=== PATIENT | male | born 1955 | race Caucasian/White ===

== ENCOUNTER 2019-11-12 18:19 | Observation (INO) | payer OTHER, SELFPAY ==
[2019-11-12] VITALS (7 sets, daily range): BP systolic 147–202; BP diastolic 85–109; PULSE 59–79; RESP 11–18; TEMP 36.6–36.9; O2SAT 94–99; BMI 24.5; BMI 21.9
--- NOTE | 2019-11-12 18:33 | EKG12_ITS ---
Test Reason : CP Blood Pressure : / mmHG Vent. Rate : 074 BPM Atrial Rate : 074 BPM P-R Int : 172 ms QRS Dur : 106 ms QT Int : 382 ms P-R-T Axes : 064 -11 049 degrees QTc Int : 424 ms Normal sinus rhythm Possible Left atrial enlargement Nonspecific T wave abnormality Abnormal ECG Confirmed by MARIIA BULLOCK, HANNAH ([id number]), metropolitan editor TOO MUKHERJEE ([id number]) on 11/17/2019 1:56:03 PM Referred By: GIULIA Confirmed By:BAKARI CHIANG MD
--- NOTE | 2019-11-12 18:36 | ED.DCSUM_ITS ---
- ER Visit Summary Date of Service: 11/12/19 Chief Complaint: Chest pain History of Present Illness: The patient is a 63 M with chest pain for several hours. Nothing seemed to bring it on or make it worse. It is in his left chest that does not radiate. Feels like a spasm. Associated with nausea. He never had this before. History of hypertension and family history of coronary disease. He never had a stress test, but does have one scheduled for next week. Denies any history of heart disease, blood clots, aortic disease. Denies fevers or recent illness. Physical Examination: Afebrile and vital signs unremarkable except for blood pressure 176/108. No acute distress. Heart regular. No respiratory distress. Abdomen nondistended. Skin appears normal. No edema noted. Test Results: EKG shows sinus rhythm at a rate of 74 with nonspecific T wave ch anges. Laboratory studies and chest x-ray are pending. Emergency Department Course and Treatment: Patient was treated with aspirin and placed on a monitor while awaiting results. Work-up was unremarkable. EKG, chest x-ray, labs, troponin reassuring. Patient is doing well on reevaluation. His heart score is 4. Nothing to suggest PE or dissection. I contacted the hospitalist for observation. Treatment Plan: As above Disposition: Observation Impression: Chest pain This note was generated with [employer] dictation software. It may contain incorrect words, spelling, and punctuation that were not noted in review of the chart prior to signing ED Disposition - Plan for ED Patient: Referrals: Danielito Malone MD [Primary Care Provider] -
[2019-11-12] MEDS: Aspirin 81 MG TAB.CHEW 324 MG PO (18:48)
[2019-11-12 18:56] LABS: Absolute Lymphocyte Count 1.75 X10^3/uL (0.83-4.51); Absolute Neutrophil Count 4.7 X10^3/uL (2.0-7.7); Basophil# 0.02 X10^3/uL; Basophil% 0.3 % (0-1); Eosinophil# 0.09 X10^3/uL; Eosinophils% 1.2 % (0-5); Hematocrit 43.5 % (40-54); Hemoglobin 15.3 g/dL (13.0-16.5); Lymphocyte # 1.75 X10^3/ul (4.0); Lymphocyte % 23.6 % (19-41); Mean Corp Hgb Conc 35.2 g/dL (32-36); Mean Corpuscular Hgb 33.4 pg (27.0-32.0); Mean Platelet Vol. 9.6 fl (6.2-12.0); Monocyte# 0.83 X10^3/uL; Monocyte% 11.2 % (0-10); NRBC Flagged by Analyzer 0 % (0-5); Neutrophil # 4.69 X10^3/uL (2.7-7.7); Neutrophil % 63.4 % (47-70); Platelet Count 299 K/mm3 (150-450); RBC Distribution Width CV 11.2 % (11.6-14.6); RBC Distribution Width SD 38.6 fl (35.1-43.9); Red Blood Count 4.58 M/mm3 (4.6-6.2); White Blood Count 7.4 K/mm3 (4.4-11.0)
--- NOTE | 2019-11-12 19:10 | RAD_ITS ---
STUDY: X-RAY CHEST REASON FOR EXAM: Male, 63 years old. CHEST PAIN STARTED THIS MORNING, FELT UNCOMFORTABLE LAST NIGHT TECHNIQUE: Single frontal view of the chest. COMPARISON: None. FINDINGS: The lungs are clear and expanded. There is no demonstrated pleural abnormality. Normal size heart. Normal mediastinum and mickey. Normal visualized pulmonary arteries. Normal visualized aortic arch and descending thoracic aorta. Normal visualized thoracic spine. Normal visualized ribs, clavicles, and shoulders. There is no demonstrated abnormality of the visualized soft tissue structures of the upper abdomen. RAD/Chest 1 View (Portable) IMPRESSION: No acute cardiopulmonary process. Electronically Signed: Rachel Adams MD at 19:27 EDT Tel , Service support ,
[2019-11-12 19:12] LABS: Anion Gap 6 (5-15); BUN 22 mg/dL (7-18); BUN/Creat Ratio 24.2 RATIO (10-20); Calcium,Total 10.2 mg/dL (8.5-10.1); Chloride 104 mmol/L (98-107); Creatinine, Serum 0.91 mg/dL (0.70-1.30); EST Glomerular Filtration Rate 90 mL/min (>60); Est Glom Filt Rate - Afr Amer 109 mL/min (>60); Glucose 99 mg/dL (74-106); Potassium 3.5 mmol/L (3.5-5.1); Sodium Level 139 mmol/L (136-145)
--- NOTE | 2019-11-12 20:30 | PCM.HP.STD ---
Problem List (1) Chest pain Status: Acute (2) HLD (hyperlipidemia) Status: Chronic History of Present Illness Date of Admission: 11/12/19 Chief Complaint: CHEST PAIN The patient is a 63 year old M with a significant history of hypertension and hyperlipidemia who presents emergency department with chest pain. His chest pain started on the same day of presentation. He described his chest pain as a tightness and spasms. His chest pain is episodic. He denies any aggravating factors. He thinks that when he takes a walk the pain improves. His pain is nonradiating. Associated with his symptoms is nausea. He denies vomiting or diaphoresis. He rated chest pain as 4-5 on a scale of 1-10. Importantly he follows up at his PCPs office for elevated blood pressure. His PCPs office had already scheduled outpatient stress test for him in a week's time. All in all his chest pain has been going on for about 1 week. Past Medical History Past Medical History (Chronic Problems): Chronic Problems (Last Updated 11/12/19 @ 21:[address] Dylan Mae MD) HLD (hyperlipidemia) (Chronic) Medical History: Medical History (Last Reviewed 11/13/19 @ 02:[address] Dylan Mae MD) HTN (hypertension) I10 Allergies No Known Allergies Allergy (Verified 11/12/19 18:22) Home Medications: Ambulatory Orders Medication Instructions Recorded Aspirin E.C. [Ecotrin] 81 mg PO DAILY@0800 11/12/19 Atenolol 50 mg PO DAILY 11/12/19 Cyanocobalamin (Vitamin B-12) 1,000 mcg PO DAILY 11/12/19 [B-12] Hydrochlorothiazide [Hctz] 25 mg PO DAILY 11/12/19 Lisinopril 40 mg PO DAILY 11/12/19 Surgical History: herniorrhaphy, - - Rotator cuff surgery Lives: Alone Smoking Status: Never smoker Review of Systems Constitutional: Denies: Chills, Fever, Weight Change HEENT: Denies: Head Aches, Sinus Congestion, Sinus Drainage Cardiovascular: Reports: Chest Pain. Denies: Palpitations Respiratory: Denies: Cough, Shortness of breath at rest, Sputum production Gastrointestinal: Reports: Nausea. Denies: Abdominal Pain, Vomiting Genitourinary: Denies: Dysuria Musculoskeletal: Denies: Joint Pain, Joint Tenderness Skin: Denies: Rash, Wounds Neurological: Denies: Numbness, Tingling, Focal weakness Psychiatric: Denies: Anxiety, Depression, Homicidal Ideations, Suicidal Ideations Hematologic/ Lymphatic: Denies: Easy Bruising, Easy Bleeding VTE Information - Inpt Only VTE Present on Admission: No VTE Mechan Device Prophylaxis: SCD's VTE Pharm Prophylaxis ordered?: No Patient Problems: Active and Suspected Problems (Last Updated 11/12/19 @ 21:[address] Dylan Mae MD) Chest pain (Acute) - Physical Exam Vitals/I&O's: Vital Signs Temp Pulse Resp BP Pulse Ox 97.9 F 59 L 11 L 147/85 H 94 11/12/19 18:20 11/12/19 19:52 11/12/19 19:52 11/12/19 19:52 11/12/19 19:52 Oxygen Delivery Method Room Air Weight: 71.214 kg Body Mass Index (BMI) 24.5 General: Alert, Oriented x3, Cooperative HEENT: Atraumatic, PERRLA, EOMI, Normocephalic Neck: Supple, No JVD, Negative Carotid Bruits Lungs: Clear to auscultation, Normal air movement Cardiovascular: Regular rate, Normal S1, Normal S2, No murmurs Abdomen: Bowel Sounds Present, Soft, Non Tender Extremities: No edema, Capillary Refill Less than 3 Seconds Skin: No rashes, No breakdown Musculoskeletal: No Tenderness to Palpation of Joints or Extremities Neurological: Cranial nerves II-XII grossly intact Psych/Mental Status: Normal Affect, Appropriate Laboratory Results 11/12/19 18:25: WBC 7.4, RBC 4.58 L, Hgb 15.3, Hct 43.5, MCV 95.0 H, MCH 33.4 H, MCHC 35.2, RDW Std Deviation 38.6, RDW Coeff of Tim 11.2 L, Plt Count 299, MPV 9.6, Immature Gran % (Auto) 0.300, Neut % (Auto) 63.4, Lymph % (Auto) 23.6, [place] % (Auto) 11.2 H, Eos % (Auto) 1.2, Baso % (Auto) 0.3, Absolute Neuts (auto) 4.7, Absolute Lymphs (auto) 1.75, Nucleated RBC % 0 11/12/19 18:25: Sodium 139, Potassium 3.5, Chloride 104, Carbon Dioxide 29.0, Anion Gap 6, BUN 22 H, Creatinine 0.91, Estim Creat Clear Calc 79.70, Est GFR (MDRD) Af Amer 109, Est GFR (MDRD) Non-Af 90, BUN/Creatinine Ratio 24.2 H, Glucose 99, Calcium 10.2 H, Troponin I < 0.015 Assessment/Plan All Active Problems (Last Updated 11/12/19 @ 21:[address] Dylan Mae MD) Chest pain (Acute) The patient is a 63 year old M with a significant history of hypertension and hyperlipidemia who presents emergency department with chest pain Chest pain Insert chest pain admission Place on a monitored bed at PCU Actual CXR image was independently visualized. No acute cardiopulmonary process was noted. Actual EKG tracing was independently visualized. EKG tracing showed no specific ST or T wave abnormalities. ASA 81 mg p.o. daily ordered SL NTG 0.4 mg prn as needed for chest pain ordered We will check lipid panel. Serial cardiac enzymes ordered Stat EKG as needed for chest pain Treadmill stress test in the AM if the cardiac enzymes are negative Hypertension emergency. Patient lives with systolic blood pressure more than 200 and diastolic blood pressure more than 100 at emergency department. Home lisinopril given at the ED. Add PRN hydralazine. Continue other home blood pressure medications. Hold home atenolol scheduled for a.m. in the setting of schedule stress test. Hypercalcemia Review of imaging department labs showed mild hypercalcemia of 10.2. Gentle IV hydration. Trend BMP. Hypokalemia Potassium of 3.5. Replaced with normal saline with 40 meq of potassium.. DVT prophylaxis SCD ordered. No chemical chemoprophylaxis in the setting of work-up for chest pain. OBSV E&M: 22784 Initial observation care L2
[2019-11-12] MEDS: Lisinopril 20 MG Tablet PO (21:18)
--- NOTE | 2019-11-12 22:02 | EKG12_ITS ---
Test Reason : CP ADMIT Blood Pressure : / mmHG Vent. Rate : 052 BPM Atrial Rate : 052 BPM P-R Int : 176 ms QRS Dur : 096 ms QT Int : 440 ms P-R-T Axes : 058 -03 040 degrees QTc Int : 409 ms Sinus bradycardia Nonspecific T wave abnormality Abnormal ECG Confirmed by LIZZY BULLOCK, BELÉN ([id number]), newspaper managing editor TOO MUKHERJEE ([id number]) on 11/19/2019 1:29:43 PM Referred By: DR PEREZ Confirmed By:BELÉN BALL MD
[2019-11-12] MEDS: 0.9% Saline Lock 10 ML Syringe IV (22:54)
[2019-11-12] MEDS: Potassium Chloride 40 MEQ in 0.9% Normal Saline 1,000 ML 100 MEQ IV (22:54)
[2019-11-13] VITALS (7 sets, daily range): BP systolic 129–142; BP diastolic 65–89; PULSE 40–74; RESP 14–16; TEMP 36.8–37; O2SAT 96–98
[2019-11-13 06:16] LABS: Absolute Lymphocyte Count 1.11 X10^3/uL (0.83-4.51); Absolute Neutrophil Count 2.8 X10^3/uL (2.0-7.7); Basophil# 0.01 X10^3/uL; Basophil% 0.2 % (0-1); Eosinophil# 0.14 X10^3/uL; Lymphocyte # 1.11 X10^3/ul (4.0); Lymphocyte % 23.8 % (19-41); Mean Corpuscular Hgb 33.5 pg (27.0-32.0); Mean Corpuscular Volume 95.7 fL (80-94); Mean Platelet Vol. 9.4 fl (6.2-12.0); Monocyte# 0.58 X10^3/uL; Monocyte% 12.4 % (0-10); NRBC Flagged by Analyzer 0 % (0-5); Neutrophil # 2.81 X10^3/uL (2.7-7.7); Neutrophil % 60.2 % (47-70); Platelet Count 248 K/mm3 (150-450); RBC Distribution Width CV 11.2 % (11.6-14.6); RBC Distribution Width SD 39.3 fl (35.1-43.9); Red Blood Count 4.18 M/mm3 (4.6-6.2); White Blood Count 4.7 K/mm3 (4.4-11.0)
[2019-11-13] MEDS: Aspirin E.C. 81 MG Tablet PO (06:35)
[2019-11-13 06:52] LABS: Anion Gap 7 (5-15); BUN 21 mg/dL (7-18); BUN/Creat Ratio 28.8 RATIO (10-20); Chloride 105 mmol/L (98-107); Cholesterol 204 mg/dL (200); Creatinine, Serum 0.73 mg/dL (0.70-1.30); EST Glomerular Filtration Rate 116 mL/min (>60); Est Glom Filt Rate - Afr Amer 141 mL/min (>60); Estimated Creatinine Clearance 104.16 ml/min; Glucose 92 mg/dL (74-106); High Density Lipoprotein 66 mg/dL; Potassium 3.6 mmol/L (3.5-5.1); Sodium Level 139 mmol/L (136-145); Triglycerides 77 mg/dL; Very Low Density Lipoprotein 15 mg/dL (5-40)
[2019-11-13] MEDS: Cyanocobalamin 500 MCG Tablet 1000 MCG PO (10:57)
[2019-11-13] MEDS: hydroCHLOROthiazide 25 MG Tablet PO (10:57)
--- NOTE | 2019-11-13 12:11 | STRESSREP ---
Stress Test Report Date: 11/13/2019 Procedure: Exercise tolerance test/imaging study Indications: Chest pain Consent: Per the patient Procedure: The patient exercised on a Ovidio protocol for 9 minutes and 30 seconds achieving a peak heart rate of 146 bpm (91 % predicted maximal heart rate) with a peak blood pressure 220/98 mmHg and a peak MET capacity of 11.7 METs. The baseline ECG demonstrated sinus bradycardia. The peak exercise ECG demonstrated sinus tachycardia with no significant ST-T changes diagnostic for ischemia. EKG during recovery revealed no significant ischemic changes [There were no cardiac dysrhythmias pretest, during exercise, or recovery]. The functional capacity was considered very good for age. There was [no complaint of chest discomfort during exercise or recovery]. The examination was discontinued secondary to achieving target heart rate. Impression: 1. Technically adequate (percent predicted maximal heart rate greater than 85%) exercise tolerance test 2. Stress test is negative for exercise-induced EKG changes of ischemia 3. The test test is negative for exercise-induced chest pain 4. Functional capacity is very good for age 5. Nuclear images pending Myocardial perfusion imaging study: Technique: The patient was injected with [] mCi of technetium 99m Cardiolite and subsequently rest SPECT Cardiolite nuclear imaging was obtained in the horizontal long, vertical long, and short axis views. The patient exercised on a Ovidio protocol. Please see above for details. The patient was injected with [] mCi of technetium 99m Cardiolite and subsequently stress SPECT Cardiolite nuclear imaging was obtained in the horizontal long, vertical long, and short axis views. A gated Cardiolite study at peak stress was obtained. Interpretation: Rest and stress SPECT Cardiolite nuclear imaging status post realignment, normalization, and attenuation correction, demonstrates overall normal myocardial radioisotope uptake after attenuation correction. There is no evidence of significant ischemia or infarction. The gated Cardiolite study demonstrates no significant regional wall motion abnormalities. The reported LVEF is [67]%. Impression: 1. There is no evidence of significant ischemia or infarction. 2. The gated Cardiolite study reports an LVEF of 67 %. This note was generated with [employer] software. It may contain incorrect words, spelling, and punctuation that were not noted in checking the note before signing.
--- NOTE | 2019-11-13 12:57 | DCINST_ITS ---
- Discharge Diagnoses Current Active Problems: Current Active and Chronic Problems (Last Reviewed 11/13/19 @ 02:[address] Dylan Mae MD) Chest pain (Acute) HLD (hyperlipidemia) (Chronic) You will use the following diet at home:: Cardiac Discharge Activity: Return to Normal Activity Call your doctor if you observe: Shortness of breath, Dizziness, Fainting spells, Chest pain Allergies/Adverse Reactions: Allergies No Known Allergies Allergy (Verified 11/12/19 18:22) Medications to take at Discharge Aspirin E.C. [Ecotrin] 81 mg PO DAILY@0800 11/12/19 Atenolol 50 mg PO DAILY 11/12/19 Cyanocobalamin (Vitamin B-12) [B-12] 1,000 mcg PO DAILY 11/12/19 Hydrochlorothiazide [Hctz] 25 mg PO DAILY 11/12/19 Lisinopril 40 mg PO DAILY 11/12/19 Primary Care Physician: Danielito Malone MD [Primary Care Provider] - Please follow up with your Primary Care Physician in: 1 Week Test Results: Test results from this visit will be discussed in further detail at your follow- up appointment, if applicable. Proposed Discharge Date: 11/13/19
--- NOTE | 2019-11-13 12:59 | DS.PCM_ITS ---
<Coby Ralph - Last Filed: 11/13/19 13:04> Discharge Date and Diagnosis Date of Admission: 11/12/19 Date of Discharge: 11/13/19 - Primary Discharge Diagnosis Acute Problems: Active Problems (Last Reviewed 11/13/19 @ 02:[address] Dylan Mae MD) 1. Chest pain, ACS ruled out-suspect musculoskeletal 2. Hypertensive emergency 3. Hypercalcemia 4. Hyperlipidemia - Secondary Discharge Diagnosis Chronic Problems: Chronic Problems (Last Reviewed 11/13/19 @ 02:[address] Dylan Mae MD) HLD (hyperlipidemia) (Chronic) Hospital Course and Treatment Imaging Results: Diagnostic Data Chest X-Ray 11/12/19 19:10 IMPRESSION: No acute cardiopulmonary process. Electronically Signed: Rachel Adams MD at 19:27 EDT Tel , Service support , Operations: None Procedures: Stress test Summary of Care Provided: The patient is a 63 year old M admitted 11/12/2019 due to chest pain. 1. Chest pain, ACS ruled out-suspect musculoskeletal-patient reports tight, spasm. Troponin negative. EKG without ST-T changes. Patient underwent nuclear stress test which was negative for ischemia. LVEF 67%. Follow-up with primary care physician in 1 week. 2. Hypertensive emergency-resolved. Continue home atenolol, hydrochlorothiazide, lisinopril regimen. 3. Hypercalcemia-resolved. 4. Hyperlipidemia-total cholesterol 204, recommended dietary modifications. If repeat lipid profile as outpatient remains abnormal, recommend a low-dose statin. Patient seen and examined prior to discharge. Physical assessment as noted below. Patient is stable for discharge with follow up recommendations as noted above. This patient was seen by HEATEHR Calvin under the supervision of Dr. Mcbride. - Physical Exam Vitals/I&O's: Vital Signs Temp Pulse Resp BP Pulse Ox 98.6 F 56 L 16 142/89 H 96 11/13/19 08:05 11/13/19 08:05 11/13/19 08:05 11/13/19 08:05 11/13/19 08:05 Oxygen Delivery Method Room Air Weight: 152 lb 12.485 oz Body Mass Index (BMI) 21.9 Intake and Output for Last 24 Hours 11/11/19 11/12/19 11/13/19 23:59 23:59 23:59 Intake Total 480 / 480 1235 / 1235 Balance 480 / 480 1235 / 1235 General: Alert, Oriented x3, Cooperative HEENT: Atraumatic, PERRLA, EOMI, Normocephalic Neck: Supple, No JVD, Negative Carotid Bruits Lungs: Clear to auscultation, Normal air movement Cardiovascular: Regular rate, No murmurs Abdomen: Bowel Sounds Present, Soft, Non Tender Extremities: No edema, Capillary Refill Less than 3 Seconds Skin: No rashes, No breakdown Musculoskeletal: No Tenderness to Palpation of Joints or Extremities Neurological: Cranial nerves II-XII grossly intact Psych/Mental Status: Normal Affect, Appropriate Laboratory Results 11/12/19 18:25: WBC 7.4, RBC 4.58 L, Hgb 15.3, Hct 43.5, MCV 95.0 H, MCH 33.4 H, MCHC 35.2, RDW Std Deviation 38.6, RDW Coeff of Tim 11.2 L, Plt Count 299, MPV 9.6, Immature Gran % (Auto) 0.300, Neut % (Auto) 63.4, Lymph % (Auto) 23.6, [place] % (Auto) 11.2 H, Eos % (Auto) 1.2, Baso % (Auto) 0.3, Absolute Neuts (auto) 4.7, Absolute Lymphs (auto) 1.75, Nucleated RBC % 0 11/12/19 18:25: Sodium 139, Potassium 3.5, Chloride 104, Carbon Dioxide 29.0, Anion Gap 6, BUN 22 H, Creatinine 0.91, Estim Creat Clear Calc 79.70, Est GFR (MDRD) Af Amer 109, Est GFR (MDRD) Non-Af 90, BUN/Creatinine Ratio 24.2 H, Glucose 99, Calcium 10.2 H, Troponin I < 0.015 11/12/19 22:25: Troponin I < 0.015 11/13/19 01:06: Troponin I < 0.015 11/13/19 05:51: WBC 4.7, RBC 4.18 L, Hgb 14.0, Hct 40.0, MCV 95.7 H, MCH 33.5 H, MCHC 35.0, RDW Std Deviation 39.3, RDW Coeff of Tim 11.2 L, Plt Count 248, MPV 9.4, Immature Gran % (Auto) 0.400, Neut % (Auto) 60.2, Lymph % (Auto) 23.8, [place] % (Auto) 12.4 H, Eos % (Auto) 3.0, Baso % (Auto) 0.2, Absolute Neuts (auto) 2.8, Absolute Lymphs (auto) 1.11, Nucleated RBC % 0 11/13/19 05:51: Sodium 139, Potassium 3.6, Chloride 105, Carbon Dioxide 27.0, Anion Gap 7, BUN 21 H, Creatinine 0.73, Estim Creat Clear Calc 104.16, Est GFR (MDRD) Af Amer 141, Est GFR (MDRD) Non-Af 116, BUN/Creatinine Ratio 28.8 H, Glucose 92, Calcium 9.0, Triglycerides 77, Cholesterol 204 H, LDL Cholesterol 123, VLDL Cholesterol 15, HDL Cholesterol 66 Current Medications Aspirin (Ecotrin) 81 mg PO DAILY@0800 [facility] Last Admin: 11/13/19 06:35 Dose: 81 mg Documented by: Cyanocobalamin (Vitamin B12) 1,000 mcg PO DAILY [facility] Last Admin: 11/13/19 10:57 Dose: 1,000 mcg Documented by: Dextrose (D50w Syringe) 0 gm IV X1 PRN; Protocol PRN Reason: Hypoglycemia Glucagon () 1 mg IM .X1 PRN PRN Reason: Hypoglycemia Hydralazine HCl (Apresoline Iv) 10 mg IV Q4H PRN PRN PRN Reason: SBP > 160 Hydrochlorothiazide (Hctz) 25 mg PO DAILY [facility] Last Admin: 11/13/19 10:57 Dose: 25 mg Documented by: Sodium Chloride () 250 mls @ 15 mls/hr IV .[id number] PRN PRN Reason: Saline Flush Sodium Chloride () 250 mls @ 15 mls/hr IV .[id number] PRN PRN Reason: Additional IVPB Infusion Lisinopril (Zestril) 40 mg PO QHS [facility] Nitroglycerin (Nitrostat) 0.4 mg SUBLINGUAL Q5M PRN PRN Reason: CHEST PAIN Ondansetron HCl (Zofran) 4 mg IV Q8H PRN PRN PRN Reason: NAUSEA/VOMITING Senna/Docusate Sodium (Senokot-S, Dolores-Colace) 2 tablet PO BID PRN PRN PRN Reason: Constipation Sodium Chloride () 10 - 40 ml IV UD PRN PRN Reason: SALINE FLUSH Last Admin: 11/12/19 22:54 Dose: 10 ml Documented by: Discharge Diet: Low fat/ Low Cholesterol Discharge Activity: Return to Normal Activity Call your doctor if you observe: Shortness of breath, Dizziness, Fainting spells, Chest pain Home Medications: Medications to take at Discharge Aspirin E.C. [Ecotrin] 81 mg PO DAILY@0800 11/12/19 Atenolol 50 mg PO DAILY 11/12/19 Cyanocobalamin (Vitamin B-12) [B-12] 1,000 mcg PO DAILY 11/12/19 Hydrochlorothiazide [Hctz] 25 mg PO DAILY 11/12/19 Lisinopril 40 mg PO DAILY 11/12/19 Primary Care Physician: Danielito Malone MD [Primary Care Provider] - Please follow up with your Primary Care Physician in: 1 Week Disposition: Home Minutes spent on discharge:: 35 Patient Condition:: Stable Medical Necessity - Tobacco Use Smoking Status: Never smoker Meaningful Use Info Meaningful Use Diagnoses (Choose all that apply): None applicable <Paintsil,Crosby - Last Filed: 11/14/19 08:35> Discharge Date and Diagnosis - Secondary Discharge Diagnosis Chronic Problems: Chronic Problems (Last Reviewed 11/13/19 @ 02:[address] Dylan Mae MD) HLD (hyperlipidemia) (Chronic) Hospital Course and Treatment Summary of Care Provided: This patient was seen in conjunction with Coby Ralph NP. I have independently interviewed and examined the patient and reviewed pertinent historical, laboratory, and other data. Please refer to her note for patient's presentation, findings, and recommendations. 63-year-old male with past medical history of hypertension, hyperlipidemia who comes in with complaints of chest pain that is nonradiating, improved with walking. Has been ongoing for 1 week. Not associated with diaphoresis or vomiting. It is associated with nausea. Patient's initial EKG was normal sinus rhythm, no acute ST-T changes. His troponins were negative. He underwent nuclear stress test that was negative. On the day of discharge, patient was seen and examined. Denied any new complaints. Physical Exam: Gen: Comfortable, not pale, not jaundiced, alert oriented x3 CVS:HS I +II, regular, no murmurs RESP: Diminished at lung bases GI: BS present and normal, nontender, no palpable organs EXT:No edema - Physical Exam Vitals/I&O's: Vital Signs Temp Pulse Resp BP Pulse Ox 98.6 F 56 L 16 142/89 H 96 11/13/19 08:05 11/13/19 08:05 11/13/19 08:05 11/13/19 08:05 11/13/19 08:05 Oxygen Delivery Method Room Air Weight: 69.3 kg Body Mass Index (BMI) 21.9 Intake and Output for Last 24 Hours 11/12/19 11/13/19 11/14/19 23:59 23:59 23:59 Intake Total 480 / 480 1235 / 1235 Balance 480 / 480 1235 / 1235 OBSV E&M: 95177 Observation care discharge
== END 2019-11-13 12:58 | disposition home or self-care (01) ==
LOC: ED 18:42 → PCU 21:31
PROVIDERS: Admitting Provider Hospitalist; Emergency Provider Emergency Medicine; PCP Family Medicine; Visit Provider Internal Medicine
DX: R07.89 Other chest pain (principal); I16.1 Hypertensive emergency; I10 Essential (primary) hypertension; E78.5 Hyperlipidemia, unspecified; E87.6 Hypokalemia; E83.52 Hypercalcemia; Z79.899 Other long term (current) drug therapy; Z79.82 Long term (current) use of aspirin
CPT/HCPCS: 36415; 71045; 78452; 80048; 80061; 84484; 85025; 93005; 93017; 96360; 96361; 99218; 99285; A9500; J7030; A4216; G0378

== ENCOUNTER 2021-07-13 17:14 | Emergency (ER) | payer BC, SELFPAY ==
[2021-07-13 17:15] VITALS: BP 183/94; PULSE 65; RESP 16; TEMP 36.3; O2SAT 97; BMI 21.9
--- NOTE | 2021-07-13 17:25 | EKG12_ITS ---
Test Reason : CP Blood Pressure : / mmHG Vent. Rate : 063 BPM Atrial Rate : 063 BPM P-R Int : 176 ms QRS Dur : 092 ms QT Int : 402 ms P-R-T Axes : 053 -01 019 degrees QTc Int : 411 ms Normal sinus rhythm Nonspecific T wave abnormality Confirmed by LIZZY BULLOCK, BELÉN ([id number]), editorial cartoonist TOO MUKHERJEE ([id number]) on 07/15/2021 10:15:51 AM Referred By: JAY Confirmed By:BELÉN BALL MD
[2021-07-13] MEDS: Aspirin 81 MG TAB.CHEW 324 MG PO (17:30)
--- NOTE | 2021-07-13 17:30 | RAD_ITS ---
INDICATION: chest pain EXAMINATION/TECHNIQUE: X-RAY - XR Chest 1 View COMPARISON: 11/12/2019. FINDINGS: The lungs are clear. The cardiomediastinal silhouette is unremarkable. No pleural effusion or pneumothorax. No acute osseous abnormalities. RAD/Chest 1 View (Portable) IMPRESSION: No acute radiographic abnormalities. Electronically Signed: Jon Gracia MD at 17:52 EST ,
--- NOTE | 2021-07-13 17:32 | EDS_ITS ---
HPI History of Present Illness Chief Complaint: Chest Pain Informant: patient Onset/Context/Timing Onset: Yesterday (around 36 hrs) Activity at onset: sudden, onset and activity on onset (random events) Timing: Intermittent and Lasts (5 seconds) Quality: Positive for Dull Location: Left Chest (without radiation) Current Severity: Gone Maximum Severity: Moderate Worsened By: Nothing Relieved By: Nothing Associated Symptoms: Positive for Nausea and Lightheadedness (maybe a little; just feel off when episodes occur); Negative for Vomiting, Diaphoresis, Dyspnea, Cough, Fever and Palpitations Narrative Narrative: Patient with the above intermittent episodes of chest discomfort since yesterday. He states he has a cardiology appointment in September for the first time, he was having episodes of lightheadedness within the past month or 2 and his doctor put him on some type of either Holter or event monitor as a result of that, and the results showed episodes of either A. fib, SVT, or both. Patient had a negative routine treadmill stress test November 2019. CVD Risk Factors: Positive for Hypertension; Negative for Diabetes, Hypercholesterolemia, Family History 1' </=55 and Smoking PE Risk Factors: Negative for Recent Travel/Surgery, Recent Immobilization, Prior DVT or PE, Cancer and OCP + Smoking + >/=35 [facility] Medical History HTN (hypertension) Home Medications atenolol 50 mg PO DAILY 11/12/19 [History Last Taken 11/12/19] cyanocobalamin (vitamin B-12) 1,000 mcg PO DAILY 11/12/19 [History Last Taken 11/12/19] hydrochlorothiazide 25 mg PO DAILY 11/12/19 [History Last Taken 11/12/19] lisinopril 40 mg PO DAILY 11/12/19 [History Last Taken 11/12/19] amlodipine 10 mg PO DAILY 07/13/21 [History Last Taken Unknown] Allergy/AdvReac Type Severity Reaction Status Date / Time No Known Allergies Allergy Verified 07/13/21 17:15 Social History Smoking Status: Never smoker ROS ROS ED Constitutional Constitutional ED: Denies chills or fever(s) Eyes Eyes: Denies change in vision or diplopia ENT ENT ED: Denies rhinorrhea or sore throat Cardiovascular Cardiovascular: Reports as per HPI and chest pain; Denies orthopnea, palpitations or pedal edema Respiratory/Chest Respiratory/Chest: Denies cough, dyspnea or orthopnea Gastrointestinal Gastrointestinal: Denies abdominal pain, diarrhea, nausea or vomiting Genitourinary Genitourinary ED: Denies dysuria or hematuria Musculoskeletal Musculoskeletal: Denies back pain or neck pain Integumentary Denies abscess or rash Neurologic Neurologic: Denies headache(s), paresthesias or weakness Psychiatric Psychiatric: Denies anxiety or suicidal thoughts EXAM Physical Exam Const Vital Signs: 07/13/21 17:15 07/13/21 17:18 07/13/21 18:23 Temperature 97.4 F L Temperature Source Temporal Pulse Rate 65 51 L Respiratory Rate 16 11 L Respiratory Effort Normal Non-Labored Blood Pressure 183/94 H 150/84 H Blood Pressure Mean 123 106 Pulse Ox 97 96 Oxygen Delivery Method Room Air Room Air 07/13/21 19:00 Temperature Temperature Source Pulse Rate 53 L Respiratory Rate 14 Respiratory Effort Blood Pressure 132/75 H Blood Pressure Mean 94 Pulse Ox 97 Oxygen Delivery Method Room Air Positive well nourished and well developed General Appearance ED: well developed and NAD HEENT Reports moist mucous membranes normocephalic and atraumatic Eyes PERRL and EOMs intact bilaterally Neck full ROM and supple Resp normal respiratory effort and clear to auscultation bilaterally Cardio regular rate, regular rhythm and no murmurs GI non-tender and non-distended Auscultation: normoactive bowel sounds Palpation: soft Back/Spine no CVA tenderness General Back: other FROM Extremity normal to inspection, no calf tenderness and no pedal edema General Extremety ED: Negative for edema, pulses abnormal or tenderness General Extremity: Negative for edema or pulses abnormal Neuro oriented x3, CN's II-XII intact bilaterally and no sensory deficits noted Sensorium / Orientation: awake and alert Motor Exam: strength 5/5 throughout Skin no rashes or lesions noted and no wounds Heart Score History: Slightly/Non-Suspicious ECG: Normal Age: >45 - <65 years Risk Factors: 1 or 2 Risk Factors Troponin: </= Normal Limit Score: 2 MDM MDM MDM Narrative Medical decision making narrative: Patient's work-up is negative. After 36 hours or so of symptoms, I do not think he needs another troponin other than the initial measurement we received which is only 7. I monitored him a while longer to see if he had any episodes of discomfort or event monitors, he had neither. He is comfortable going home. I reassured him I do not think he is having unstable angina, it is possible he is having ectopy and having symptoms of it, he is scheduled to follow-up with cardiology, we discussed reasons to return. Of note also, his blood pressure was 183/94 when he got here, without treatment on reassessment it is 132/75. Lab Data Attestation: I reviewed the patient's lab results. Labs: Laboratory Results - last 24 hr 07/13/21 07/13/21 17:25 17:25 WBC 6.2 RBC 4.53 L Hgb 15.5 Hct 43.0 MCV 94.9 H MCH 34.2 H MCHC 36.0 RDW Std Deviation 39.0 RDW Coeff of Tim 11.1 L Plt Count 314 MPV 9.6 Immature Gran % (Auto) 0.200 Neut % (Auto) 55.9 Lymph % (Auto) 29.4 [place] % (Auto) 12.9 H Eos % (Auto) 1.3 Baso % (Auto) 0.3 Absolute Neuts (auto) 3.5 Absolute Lymphs (auto) 1.82 Nucleated RBC % 0 Sodium 137 Potassium 3.7 Chloride 103 Carbon Dioxide 28.0 Anion Gap 6 BUN 26 H Creatinine 1.03 Estim Creat Clear Calc 72.06 Est GFR (MDRD) Af Amer 94 Est GFR (MDRD) Non-Af 77 BUN/Creatinine Ratio 25.2 H Glucose 96 Calcium 9.6 Troponin I High Sens 7 Radiography Diagnostic Testing: Clinical Impression(s) from Imaging Studies Chest X-Ray 07/13/21 17:30 IMPRESSION: No acute radiographic abnormalities. Electronically Signed: Jon Gracia MD at 17:52 EST , Rhythm Strip Rhythm Strip: Sinus Rhythm Rate: 55 Ectopy: None EKG Initial EKG: Attestation: I personally reviewed and interpreted this EKG as follows: Interpretation: Sinus Rhythm and No Acute Injury Pattern Prior EKG tracings: available for review Prior: Unchanged Discharge Plan Triage Chief Complaint: Chest Pain ED Provider: Jaison Rushing Dx/Rx/DC Orders Clinical Impression: Intermittent left-sided chest pain Instructions: ED Chest Pain, Uncertain Cause Prescriptions: No Action hydrochlorothiazide 25 MG tablet 25 mg PO DAILY RF: 0 lisinopril 40 MG tablet 40 mg PO DAILY RF: 0 atenolol 50 MG tablet 50 mg PO DAILY RF: 0 cyanocobalamin (vitamin B-12) 1,000 MCG tablet 1,000 mcg PO DAILY RF: 0 amlodipine 10 mg tablet 10 mg PO DAILY RF: 0 Primary Care Provider: Danielito Malone Referrals: Nicola Black MD [NON-STAFF] - Keep Wandy appointment (or sooner if able) Danielito Malone MD [Primary Care Provider] - Disposition Disposition: Home, Self Care
[2021-07-13 18:02] LABS: Anion Gap 6 (5-15); BUN 26 mg/dL (7-18); BUN/Creat Ratio 25.2 RATIO (10-20); Calcium,Total 9.6 mg/dL (8.5-10.1); Chloride 103 mmol/L (98-107); Creatinine, Serum 1.03 mg/dL (0.70-1.30); EST Glomerular Filtration Rate 77 mL/min (>60); Est Glom Filt Rate - Afr Amer 94 mL/min (>60); Estimated Creatinine Clearance 72.06 ml/min; Glucose 96 mg/dL (74-106); Potassium 3.7 mmol/L (3.5-5.1); Sodium Level 137 mmol/L (136-145); Troponin-I HS 7 pg/mL (3.0-78.0)
[2021-07-13 18:04] LABS: Absolute Lymphocyte Count 1.82 X10^3/uL (0.83-4.51); Absolute Neutrophil Count 3.5 X10^3/uL (2.0-7.7); Basophil# 0.02 X10^3/uL; Basophil% 0.3 % (0-1); Eosinophil# 0.08 X10^3/uL; Eosinophils% 1.3 % (0-5); Hemoglobin 15.5 g/dL (13.0-16.5); Lymphocyte # 1.82 X10^3/ul (0.83-4.51); Lymphocyte % 29.4 % (19-41); Mean Corpuscular Hgb 34.2 pg (27.0-32.0); Mean Corpuscular Volume 94.9 fL (80-94); Mean Platelet Vol. 9.6 fl (6.2-12.0); Monocyte% 12.9 % (0-10); NRBC Flagged by Analyzer 0 % (0-5); Neutrophil # 3.45 X10^3/uL (2.7-7.7); Neutrophil % 55.9 % (47-70); Platelet Count 314 K/mm3 (150-450); RBC Distribution Width CV 11.1 % (11.6-14.6); Red Blood Count 4.53 M/mm3 (4.6-6.2); White Blood Count 6.2 K/mm3 (4.4-11.0)
[2021-07-13 18:23] VITALS: BP 150/84; PULSE 51; RESP 11; O2SAT 96
[2021-07-13 19:00] VITALS: BP 132/75; PULSE 53; RESP 14; O2SAT 97
[2021-07-13 19:29] VITALS: BP 152/74; PULSE 53; RESP 12; O2SAT 97
== END 2021-07-13 19:29 | disposition home or self-care (01) ==
PROVIDERS: Emergency Provider Emergency Medicine; PCP Family Medicine; Visit Provider Emergency Medicine
DX: R07.9 Chest pain, unspecified (principal); I10 Essential (primary) hypertension; R11.0 Nausea; R42 Dizziness and giddiness; Z79.899 Other long term (current) drug therapy
CPT/HCPCS: 71045; 80048; 84484; 85025; 93005; 99285; A4216

== ENCOUNTER 2021-08-01 20:56 | Emergency (ER) | payer BC, SELFPAY ==
[2021-08-01 20:57] VITALS: BP 175/98; PULSE 110; RESP 18; TEMP 36.8; O2SAT 97; BMI 21.9
[2021-08-01 21:03] VITALS: PULSE 89
--- NOTE | 2021-08-01 21:09 | EKG12_ITS ---
Test Reason : CP Blood Pressure : / mmHG Vent. Rate : 094 BPM Atrial Rate : 094 BPM P-R Int : 170 ms QRS Dur : 096 ms QT Int : 338 ms P-R-T Axes : 058 -05 042 degrees QTc Int : 422 ms Sinus rhythm with marked sinus arrhythmia Nonspecific ST abnormality Abnormal ECG Confirmed by AYE BULLOCK, FORD ([id number]), editor greeting card TOO MUKHERJEE ([id number]) on 08/04/2021 1:28:48 PM Referred By: ABRAN Confirmed By:FORD GRIFFITHS MD
--- NOTE | 2021-08-01 21:18 | RAD_ITS ---
STUDY: XR Chest 1 View 08/01/2021 9:10 PM REASON FOR EXAM: Male, 65 years old. CHEST PAIN chest pain COMPARISON: 2.9 TECHNIQUE: XR Chest 1 View FINDINGS: There is no demonstrated pleural abnormality. Normal heart size. Normal mediastinum. Normal mickey. Prominent appearing increased interstitial lung markings. Normal visualized pulmonary arteries. There is atherosclerotic calcification of the aortic arch with tortuosity. There are diffuse degenerative changes of the visualized thoracic spine. There is degenerative osteoarthritis of the bilateral shoulders. There is no demonstrated abnormality of the visualized soft tissue structures of the upper abdomen. RAD/Chest 1 View (Portable) IMPRESSION: There are no acute findings. Electronically Signed: Kory Henry MD at 21:29 EST ,
[2021-08-01 21:22] LABS: Absolute Lymphocyte Count 1.49 X10^3/uL (0.83-4.51); Absolute Neutrophil Count 3.6 X10^3/uL (2.0-7.7); Basophil# 0.01 X10^3/uL; Basophil% 0.2 % (0-1); Eosinophil# 0.13 X10^3/uL; Eosinophils% 2.3 % (0-5); Hematocrit 42.3 % (40-54); Hemoglobin 15.1 g/dL (13.0-16.5); Lymphocyte # 1.49 X10^3/ul (0.83-4.51); Lymphocyte % 25.8 % (19-41); Mean Corp Hgb Conc 35.7 g/dL (32-36); Mean Corpuscular Hgb 34.2 pg (27.0-32.0); Mean Corpuscular Volume 95.9 fL (80-94); Mean Platelet Vol. 9.5 fl (6.2-12.0); Monocyte# 0.54 X10^3/uL; Monocyte% 9.4 % (0-10); NRBC Flagged by Analyzer 0 % (0-5); Neutrophil # 3.58 X10^3/uL (2.7-7.7); Platelet Count 210 K/mm3 (150-450); RBC Distribution Width CV 11.3 % (11.6-14.6); RBC Distribution Width SD 40.1 fl (35.1-43.9); Red Blood Count 4.41 M/mm3 (4.6-6.2); White Blood Count 5.8 K/mm3 (4.4-11.0)
[2021-08-01] MEDS: Aspirin 81 MG TAB.CHEW 324 MG PO (21:36)
[2021-08-01 21:47] LABS: Anion Gap 4 (5-15); BUN 18 mg/dL (7-18); BUN/Creat Ratio 16.8 RATIO (10-20); Calcium,Total 9.7 mg/dL (8.5-10.1); Chloride 105 mmol/L (98-107); Creatinine, Serum 1.07 mg/dL (0.70-1.30); EST Glomerular Filtration Rate 74 mL/min (>60); Est Glom Filt Rate - Afr Amer 90 mL/min (>60); Estimated Creatinine Clearance 69.36 ml/min; Glucose 143 mg/dL (74-106); Potassium 4.1 mmol/L (3.5-5.1); Sodium Level 137 mmol/L (136-145); Troponin-I HS 7 pg/mL (3.0-78.0)
[2021-08-01 22:21] VITALS: BP 158/89; PULSE 69; RESP 12; O2SAT 96
--- NOTE | 2021-08-01 23:14 | EDS_ITS ---
HPI History of Present Illness Detail of Chief Complaint: Lightheaded and palpitations. Informant: patient Onset/Context/Timing Onset: Today and Hours Timing: Intermittent Associated Symptoms: Positive for Lightheadedness; Negative for Nausea, Vomiting, Diaphoresis, Dyspnea, Cough, Fever, Acid Reflux and Palpitations Narrative Narrative: 65-year-old male who comes in complaining of lightheadedness today. He developed what he thought was palpitations accelerated heart rate. Now his symptoms have resolved. Recently was placed on a site monitor. They have concerns that he may have had episodes of A. fib and he has follow-up with Dr. David a professor of social work with the [facility]. Patient has no cardiac history. He did have a negative stress test a year ago. Otherwise he states he has been feeling fine. He denies any chest pain or exertional symptoms. Prior Similar Symptoms: Yes Recent Illness/Hospitalization: No CVD Risk Factors: Positive for Hypertension; Negative for Diabetes and Hypercholesterolemia PE Risk Factors: Negative for Recent Travel/Surgery, Recent Immobilization, Prior DVT or PE, Cancer and OCP + Smoking + >/=35 [facility] Risk Factors: Negative for Marfan's Syndrome [facility] Medical History HTN (hypertension) Home Medications atenolol 50 mg PO DAILY 11/12/19 [History Last Taken 11/12/19] cyanocobalamin (vitamin B-12) 1,000 mcg PO DAILY 11/12/19 [History Last Taken 11/12/19] hydrochlorothiazide 25 mg PO DAILY 11/12/19 [History Last Taken 11/12/19] lisinopril 40 mg PO DAILY 11/12/19 [History Last Taken 11/12/19] amlodipine 5 mg PO DAILY 07/13/21 [History Last Taken Unknown] Allergy/AdvReac Type Severity Reaction Status Date / Time No Known Allergies Allergy Verified 07/13/21 17:15 Social History Smoking Status: Never smoker ROS ROS ED ROS Narrative Palpitations. Tachycardia. Lightheadedness. Review of Systems ROS Unobtainable: Denies due to encephalopathy Constitutional Constitutional ED: Denies fever(s) Eyes Eyes: Denies none ENT ENT ED: Denies ear pain Cardiovascular Cardiovascular: Reports as per HPI, palpitations and racing heartbeat; Denies chest pain Respiratory/Chest Respiratory/Chest: Denies cough or dyspnea Gastrointestinal Gastrointestinal: Denies abdominal pain, constipation, diarrhea, nausea or vomiting Genitourinary Genitourinary ED: Denies dysuria Musculoskeletal Musculoskeletal: Denies myalgias Integumentary Denies rash Neurologic Neurologic: Denies headache(s) Psychiatric Psychiatric: Denies depression Endocrine Endocrinology: Denies polyuria Hematologic/Lymphatic Hematologic/Lymphatic: Denies easy bruising EXAM Physical Exam Narrative Exam Narrative: 65-year-old male no acute distress. Vital signs are stable and afebrile during my exam his heart rates about 90. He is in no distress. Pulse ox 97% on room air no hypoxia. H EENT exam normal. Neck nontender no lymphadenopathy. Lungs clear to auscultation bilaterally. Heart regular rate and rhythm rate about 90 no murmur. Chest were nontender. Abdomen soft nontender. He is moving all 4 extremities. Calves are nontender without edema or cords. Neurologically is awake and alert with no focal motor deficits. Neck exam there is no thyromegaly. Const Vital Signs: 08/01/21 20:57 08/01/21 21:02 08/01/21 21:03 Temperature 98.2 F Temperature Source Temporal Pulse Rate 110 H 89 Respiratory Rate 18 Respiratory Effort Normal Non-Labored Blood Pressure 175/98 H Blood Pressure Mean 123 Pulse Ox 97 Oxygen Delivery Method Room Air 08/01/21 22:21 Temperature Temperature Source Pulse Rate 69 Respiratory Rate 12 Respiratory Effort Blood Pressure 158/89 H Blood Pressure Mean 112 Pulse Ox 96 Oxygen Delivery Method Room Air Positive well nourished and well developed; Negative for obese, cachectic, contractures or unkempt General Appearance ED: well developed and NAD; Negative for unkempt, cachectic, contractures or pallor Nutritional Appearance: Negative for cachectic or obese HEENT Reports moist mucous membranes normocephalic; Negative for trauma or tenderness Eyes PERRL and EOMs intact bilaterally General Eye ED: Negative for pale conjunctiva or scleral icterus Neck no lymphadenopathy, supple and no JVD General: Negative for tenderness Chest Wall inspection of chest normal and palpation of chest normal Chest: Negative for tenderness Resp normal respiratory effort and clear to auscultation bilaterally Effort and Inspection: respiratory distress Auscultation: Negative for rales, rhonchi or wheezes Cardio regular rate, regular rhythm, S1 normal heart sound, S2 normal heart sound and no murmurs GI normal to inspection, nondistended, normoactive bowel sounds, soft to palpation, non-tender, non-distended and no masses; Negative for hepatosplenomegaly Auscultation: Negative for hyperactive bowel sounds Palpation: Negative for splenomegaly Back/Spine no CVA tenderness and no thoracic nor lumbar tenderness General Back: Negative for CVA tenderness Extremity normal to inspection General Extremety ED: Negative for edema, pulses abnormal or tenderness General Extremity: Negative for edema or pulses abnormal Neuro oriented x3 Sensorium / Orientation: awake, alert, oriented to person, oriented to place and oriented to time Motor Exam: strength 5/5 throughout Psych mental status grossly normal Appearance: Negative for unkempt Attitude: No agitated Mood & Affect: Negative for depressed or tearful Skin no rashes or lesions noted and no wounds General Skin Exam: Negative for jaundice or pallor Heart Score History: Slightly/Non-Suspicious ECG: Normal Age: >45 - <65 years Risk Factors: No Risk Factors Troponin: </= Normal Limit Score: 1 MDM MDM MDM Narrative Medical decision making narrative: 65-year-old male with palpitations lightheadedness. He may or may not have had a dysrhythmia. His exam is benign and currently his symptoms have resolved and he is in a normal heart rate in the emergency department. He will undergo a cardiac work-up. There is suspicion from a recent outpatient site monitor that he may have A. fib or another dysrhythmia. He is seeking further evaluation for that coming up with a cardiology appointment. Repeat exam patient is doing well at 11:20 PM. And I went over his test. He is comfortable being discharged home. Follow-up with his cardiology appointment for further evaluation for possible palpitations or other dysrhythmias. Lab Data Attestation: I reviewed the patient's lab results. Lab results narrative: CBC shows a white count of 5.8. H&H of 15 and 42. Platelets are normal. Electrolytes unremarkable gap of 4. Normal BUN and creatinine. Glucose 143. Troponin is 7. Chest x-ray is unremarkable. Labs: Laboratory Results - last 24 hr 08/01/21 08/01/21 21:10 21:10 WBC 5.8 RBC 4.41 L Hgb 15.1 Hct 42.3 MCV 95.9 H MCH 34.2 H MCHC 35.7 RDW Std Deviation 40.1 RDW Coeff of Tim 11.3 L Plt Count 210 MPV 9.5 Immature Gran % (Auto) 0.300 Neut % (Auto) 62.0 Lymph % (Auto) 25.8 [place] % (Auto) 9.4 Eos % (Auto) 2.3 Baso % (Auto) 0.2 Absolute Neuts (auto) 3.6 Absolute Lymphs (auto) 1.49 Nucleated RBC % 0 Sodium 137 Potassium 4.1 Chloride 105 Carbon Dioxide 28.0 Anion Gap 4 L BUN 18 Creatinine 1.07 Estim Creat Clear Calc 69.36 Est GFR (MDRD) Af Amer 90 Est GFR (MDRD) Non-Af 74 BUN/Creatinine Ratio 16.8 Glucose 143 H Calcium 9.7 Troponin I High Sens 7 Radiography Chest X-Ray - ED: 1 View, Read by ED Physician, Read by Radiologist, Heart, Lungs, Mediastinum, Bony Structures and No Acute Disease Diagnostic Testing: Clinical Impression(s) from Imaging Studies Chest X-Ray 08/01/21 21:18 IMPRESSION: There are no acute findings. Electronically Signed: Kory Henry MD at 21:29 EST Reading Location ID and State: [facility] / [place] , Service support , Rhythm Strip Rhythm Strip: Sinus Rhythm Rate: 94 Ectopy: None EKG Initial EKG: Attestation: I personally reviewed and interpreted this EKG as follows: Interpretation: Sinus Rhythm and No Acute Injury Pattern Comments: Normal sinus rhythm rate of 94. No acute signs of DE nor ischemia. Sinus arrhythmia. Discharge Plan Triage ED Provider: Ton Hickey Dx/Rx/DC Orders Clinical Impression: Heart palpitations, Hypertension Instructions: ED Palpitations Prescriptions: No Action hydrochlorothiazide 25 MG tablet 25 mg PO DAILY RF: 0 lisinopril 40 MG tablet 40 mg PO DAILY RF: 0 atenolol 50 MG tablet 50 mg PO DAILY RF: 0 cyanocobalamin (vitamin B-12) 1,000 MCG tablet 1,000 mcg PO DAILY RF: 0 amlodipine 10 mg tablet 5 mg PO DAILY RF: 0 Primary Care Provider: Danielito Malone Referrals: Nicola Black MD [NON-STAFF] - Keep Wandy appointment Danielito Malone MD [Primary Care Provider] - Activity Restrictions/Additional Instructions: You may or may not be having an abnormal rhythm which could be atrial fibrillation with rapid ventricular response. There is no signs of that tonight. When you follow-up with Dr. Rothman can evaluate your prior cardiac monitoring. You do not need any further evaluation tonight. You can be discharged home. 8 if you have recurrent symptoms any persist return. Disposition Disposition: Home, Self Care
[2021-08-01 23:16] VITALS: BP 141/82; PULSE 65; RESP 11; O2SAT 98
[2021-08-01 23:36] LABS: Troponin-I HS 8 pg/mL (3.0-78.0)
[2021-08-01 23:41] VITALS: BP 143/90; PULSE 73; RESP 16; O2SAT 97
== END 2021-08-01 23:42 | disposition home or self-care (01) ==
PROVIDERS: Emergency Provider Emergency Medicine; PCP Family Medicine; Visit Provider Emergency Medicine
DX: R00.2 Palpitations (principal); R42 Dizziness and giddiness; I10 Essential (primary) hypertension; Z79.899 Other long term (current) drug therapy
CPT/HCPCS: 71045; 80048; 84484; 85025; 93005; 99285; A4216

== ENCOUNTER 2021-10-02 11:58 | Emergency (ER) | payer BC, SELFPAY ==
[2021-10-02 11:59] VITALS: BP 175/85; PULSE 59; RESP 11; TEMP 36.4; O2SAT 98; BMI 22.6
--- NOTE | 2021-10-02 12:11 | EKG12_ITS ---
Test Reason : Blood Pressure : / mmHG Vent. Rate : 061 BPM Atrial Rate : 061 BPM P-R Int : 182 ms QRS Dur : 088 ms QT Int : 402 ms P-R-T Axes : 061 001 040 degrees QTc Int : 404 ms Normal sinus rhythm Normal ECG Confirmed by AYE BULLOCK, FORD ([id number]), editor in chief newspaper TOO MUKHERJEE ([id number]) on 10/03/2021 1:22:42 PM Referred By: Confirmed By:FORD GRIFFITHS MD
--- NOTE | 2021-10-02 12:12 | ED.VIS.CHEST ---
HPI History of Present Illness Chief Complaint: Chest Pain Informant: patient Onset/Context/Timing Onset: Days Activity at onset: gradual Timing: Intermittent Narrative Narrative: Patient presents secondary to intermittent left-sided chest pain. He states the past several days has been having intermittent pain, more frequent since 8:00 this morning. He describes a mild pressure with occasional sharp stabbing pain that is very quick. It does not seem to be related to arm movement or deep breathing. He does not have significant shortness of breath. He has been having similar symptoms recently and is scheduled to see cardiology in November. He reports his last stress test was approximately 2 years ago and normal at that time. [facility] Medical History Hernia HLD (hyperlipidemia) HTN (hypertension) Home Medications atenolol 50 mg PO DAILY 11/12/19 [History Last Taken 11/12/19] cyanocobalamin (vitamin B-12) 1,000 mcg PO DAILY 11/12/19 [History Last Taken 11/12/19] hydrochlorothiazide 25 mg PO DAILY 11/12/19 [History Last Taken 11/12/19] lisinopril 40 mg PO DAILY 11/12/19 [History Last Taken 11/12/19] amlodipine 5 mg PO DAILY 07/13/21 [History Last Taken Unknown] Allergy/AdvReac Type Severity Reaction Status Date / Time No Known Allergies Allergy Verified 10/02/21 12:02 Surgical History H/O repair of rotator cuff Social History Smoking Status: Never smoker ROS ROS ED Constitutional Constitutional ED: Denies chills or fever(s) Eyes Eyes: Denies change in vision ENT ENT ED: Denies sore throat Cardiovascular Cardiovascular: Reports chest pain Respiratory/Chest Respiratory/Chest: Denies cough or dyspnea Gastrointestinal Gastrointestinal: Denies abdominal pain, nausea or vomiting Genitourinary Genitourinary ED: Denies dysuria Musculoskeletal Musculoskeletal: Denies back pain or neck pain Integumentary Denies rash Neurologic Neurologic: Denies headache(s) or weakness Allergic/Immunologic Allergic/Immunologic ED: Denies urticaria EXAM Physical Exam Const Vital Signs: 10/02/21 11:59 10/02/21 12:19 10/02/21 12:23 Temperature 97.6 F L Temperature Source Temporal Pulse Rate 59 L Respiratory Rate 11 L Respiratory Effort Normal Non-Labored Respiratory Pattern Normal Blood Pressure 175/85 H Blood Pressure Mean 115 Pulse Ox 98 Oxygen Delivery Method Room Air Room Air 10/02/21 13:08 10/02/21 14:28 Temperature Temperature Source Pulse Rate 49 L 44 L Respiratory Rate 8 L 16 Respiratory Effort Respiratory Pattern Blood Pressure 141/80 H 166/92 H Blood Pressure Mean 100 116 Pulse Ox 99 99 Oxygen Delivery Method Room Air Room Air Positive well nourished and well developed General Appearance ED: well developed HEENT normocephalic and atraumatic Eyes PERRL and EOMs intact bilaterally Neck no lymphadenopathy and supple Chest Wall inspection of chest normal and palpation of chest normal Resp normal respiratory effort Effort and Inspection: respiratory distress Cardio regular rate and regular rhythm GI normal to inspection, nondistended, normoactive bowel sounds Extremity normal to inspection Neuro oriented x3 and no sensory deficits noted Sensorium / Orientation: awake and alert Motor Exam: strength 5/5 throughout Psych mental status grossly normal Skin no rashes or lesions noted Heart Score History: Slightly/Non-Suspicious ECG: Normal Age: >45 - <65 years Risk Factors: 1 or 2 Risk Factors Troponin: </= Normal Limit Score: 2 MDM MDM MDM Narrative Medical decision making narrative: Patient given aspirin. Patient placed on cardiac exercise physiologist. EKG, chest x-ray, lab work obtained. Lab Data Attestation: I reviewed the patient's lab results. Labs: Laboratory Results - last 24 hr 10/02/21 10/02/21 10/02/21 12:15 12:15 12:15 WBC 5.5 RBC 4.20 L Hgb 14.2 Hct 39.3 L MCV 93.6 MCH 33.8 H MCHC 36.1 H RDW Std Deviation 38.2 RDW Coeff of Tim 11.3 L Plt Count 229 MPV 9.3 Immature Gran % (Auto) 0.200 Neut % (Auto) 70.9 H Lymph % (Auto) 16.8 L [place] % (Auto) 10.6 H Eos % (Auto) 1.3 Baso % (Auto) 0.2 Absolute Neuts (auto) 3.9 Absolute Lymphs (auto) 0.92 Nucleated RBC % 0 D-Dimer Quant (PE/DVT) < 0.27 L Sodium 138 Potassium 3.7 Chloride 106 Carbon Dioxide 27.0 Anion Gap 5 BUN 17 Creatinine 0.87 Estim Creat Clear Calc 87.93 Est GFR (MDRD) Af Amer 114 Est GFR (MDRD) Non-Af 94 BUN/Creatinine Ratio 19.5 Glucose 103 Calcium 9.7 Troponin I High Sens 4 Radiography Chest X-Ray - ED: 1 View, Read by ED Physician, Normal, Heart, Lungs and Mediastinum Diagnostic Testing: Clinical Impression(s) from Imaging Studies Chest X-Ray 10/02/21 12:26 IMPRESSION: No demonstrated acute cardiopulmonary process. Electronically Signed: Dannielle Ba MD at 12:48 EDT , EKG Initial EKG: Attestation: I personally reviewed and interpreted this EKG as follows: Interpretation: Sinus Rhythm (Sinus at 61 with no acute ischemia.) Treatment and Re-Evaluation Narrative: Patient does have sinus bradycardia noted on cardiac exercise physiologist. No dysrhythmias appreciated. Lab work unremarkable including negative D-dimer. Troponin checked x2 and both values within normal limits. Patient be discharged with reassurance. He will follow-up with cardiology as scheduled. Return instructions provided. Discharge Plan Triage Chief Complaint: Chest Pain ED Provider: Mariana Gore Dx/Rx/DC Orders Clinical Impression: Chest pain Instructions: ED Chest Pain, Noncardiac Prescriptions: No Action hydrochlorothiazide 25 MG tablet 25 mg PO DAILY RF: 0 lisinopril 40 MG tablet 40 mg PO DAILY RF: 0 atenolol 50 MG tablet 50 mg PO DAILY RF: 0 cyanocobalamin (vitamin B-12) 1,000 MCG tablet 1,000 mcg PO DAILY RF: 0 amlodipine 10 mg tablet 5 mg PO DAILY RF: 0 Primary Care Provider: Danielito Malone Referrals: Mendez Dahl MD [STAFF PHYSICIAN] - Keep Wandy appointment Danielito Malone MD [Primary Care Provider] - Disposition Disposition: Home, Self Care
[2021-10-02] MEDS: Aspirin 81 MG TAB.CHEW 324 MG PO (12:22)
--- NOTE | 2021-10-02 12:26 | RAD_ITS ---
STUDY: X-RAY CHEST REASON FOR EXAM: Male, 65 years old. Chest pain TECHNIQUE: Single AP portable view of the chest. COMPARISON: August 01, 2021 chest x-ray FINDINGS: The lungs are clear and expanded. There is no demonstrated pleural abnormality. Normal size heart. Normal mediastinum and mickey. Normal visualized pulmonary arteries. Normal visualized aortic arch and descending thoracic aorta. Normal visualized thoracic spine. There is a postoperative orthopedic tack overlying the humerus. There is no demonstrated abnormality of the visualized soft tissue structures of the upper abdomen. RAD/Chest 1 View (Portable) IMPRESSION: No demonstrated acute cardiopulmonary process. Electronically Signed: Dannielle Ba MD at 12:48 EDT ,
[2021-10-02 12:30] LABS: Absolute Lymphocyte Count 0.92 X10^3/uL (0.83-4.51); Absolute Neutrophil Count 3.9 X10^3/uL (2.0-7.7); Basophil# 0.01 X10^3/uL; Basophil% 0.2 % (0-1); Eosinophil# 0.07 X10^3/uL; Eosinophils% 1.3 % (0-5); Hematocrit 39.3 % (40-54); Hemoglobin 14.2 g/dL (13.0-16.5); Lymphocyte # 0.92 X10^3/ul (0.83-4.51); Lymphocyte % 16.8 % (19-41); Mean Corp Hgb Conc 36.1 g/dL (32-36); Mean Corpuscular Hgb 33.8 pg (27.0-32.0); Mean Corpuscular Volume 93.6 fL (80-94); Mean Platelet Vol. 9.3 fl (6.2-12.0); Monocyte# 0.58 X10^3/uL; Monocyte% 10.6 % (0-10); NRBC Flagged by Analyzer 0 % (0-5); Neutrophil # 3.89 X10^3/uL (2.7-7.7); Neutrophil % 70.9 % (47-70); Platelet Count 229 K/mm3 (150-450); RBC Distribution Width CV 11.3 % (11.6-14.6); RBC Distribution Width SD 38.2 fl (35.1-43.9); White Blood Count 5.5 K/mm3 (4.4-11.0)
[2021-10-02 12:45] LABS: D-Dimer Quantitative (DVT/PE) < 0.27 FEU/ug/m (0.27-0.49)
[2021-10-02 12:56] LABS: Anion Gap 5 (5-15); BUN 17 mg/dL (7-18); BUN/Creat Ratio 19.5 RATIO (10-20); Calcium,Total 9.7 mg/dL (8.5-10.1); Chloride 106 mmol/L (98-107); Creatinine, Serum 0.87 mg/dL (0.70-1.30); EST Glomerular Filtration Rate 94 mL/min (>60); Est Glom Filt Rate - Afr Amer 114 mL/min (>60); Estimated Creatinine Clearance 87.93 ml/min; Glucose 103 mg/dL (74-106); Potassium 3.7 mmol/L (3.5-5.1); Sodium Level 138 mmol/L (136-145); Troponin-I HS (w/2H Reflex) 4 pg/mL (3.0-78.0)
[2021-10-02 13:08] VITALS: BP 141/80; PULSE 49; RESP 8; O2SAT 99
[2021-10-02 14:27] LABS: Reflex Troponin-HS? (from REC) Y
[2021-10-02 14:28] VITALS: BP 166/92; PULSE 44; RESP 16; O2SAT 99
[2021-10-02 14:52] LABS: Troponin-I HS 6 pg/mL (3.0-78.0)
[2021-10-02 15:02] VITALS: BP 143/83; PULSE 50; RESP 16; O2SAT 100
== END 2021-10-02 15:03 | disposition home or self-care (01) ==
PROVIDERS: Emergency Provider Emergency Medicine; PCP Family Medicine; Visit Provider Emergency Medicine
DX: R07.9 Chest pain, unspecified (principal); E78.5 Hyperlipidemia, unspecified; I10 Essential (primary) hypertension
CPT/HCPCS: 71045; 80048; 84484; 85025; 85379; 93005; 99285; A4216

== ENCOUNTER 2022-05-31 15:22 | Emergency (ER) | payer BC, SELFPAY ==
[2022-05-31 15:23] VITALS: BP 169/91; PULSE 69; RESP 15; TEMP 36.2; O2SAT 95; BMI 23.1
--- NOTE | 2022-05-31 16:29 | EX.ED.DYSGE1 ---
HPI History of Present Illness Chief Complaint: Hypertension Informant: patient Onset/Context/Timing Onset: Today Context: Gradual Onset Timing: Continuous Quality: Fluttering Location: Chest Worsened by: Nothing Relieved by: Nothing Narrative Narrative: Patient presents with elevated blood pressures that began earlier this morning. Patient states he is felt a fluttering in his chest all day. Patient states he feels like his heart is racing at times. Patient states at home his blood pressure has been in the 190s over upper 90s. Patient denies any chest pain. Patient denies any shortness of breath. Patient admits to some nausea but denies any vomiting. Patient denies any neck or back pain. Patient denies any other symptoms. [facility] Medical History (Updated 05/31/22 @ 17:[address] Elvin Payan DO) Hernia HLD (hyperlipidemia) HTN (hypertension) Home Medications atenolol 50 mg tablet 50 mg PO DAILY BP 11/12/19 [History Last Taken 11/12/19] cyanocobalamin (vitamin B-12) 1,000 mcg tablet 1,000 mcg PO DAILY SUPPLEMENT 11/12/19 [History Last Taken 11/12/19] hydrochlorothiazide 25 mg tablet 25 mg PO DAILY BP 11/12/19 [History Last Taken 11/12/19] lisinopril 40 mg tablet 40 mg PO DAILY BP 11/12/19 [History Last Taken 11/12/19] amlodipine 10 mg tablet 5 mg PO DAILY 07/13/21 [History Last Taken Unknown] Allergy/AdvReac Type Severity Reaction Status Date / Time No Known Allergies Allergy Verified 05/31/22 15:25 Surgical History (Updated 05/31/22 @ 16:[address] Elvin Payan DO) H/O repair of rotator cuff History of herniorrhaphy Social History Smoking Status: Never smoker ROS ROS ED Constitutional Constitutional ED: Denies chills or fever(s) Eyes Eyes: Denies blurry vision or change in vision ENT ENT ED: Denies rhinorrhea or sore throat Cardiovascular Cardiovascular: Reports racing heartbeat; Denies chest pain or palpitations Respiratory/Chest Respiratory/Chest: Denies cough or dyspnea Gastrointestinal Gastrointestinal: Reports nausea; Denies vomiting Genitourinary Genitourinary ED: Denies dysuria or hematuria Musculoskeletal Musculoskeletal: Denies back pain or neck pain Integumentary Denies abscess or rash Neurologic Neurologic: Denies headache(s) or weakness Allergic/Immunologic Allergic/Immunologic ED: Denies mouth swelling or urticaria EXAM Physical Exam Const Vital Signs: 05/31/22 15:23 05/31/22 16:26 05/31/22 17:27 Temperature 97.1 F L Temperature Source Temporal Pulse Rate 69 86 Respiratory Rate 15 15 Respiratory Effort Normal Non-Labored Respiratory Pattern Normal Blood Pressure 169/91 H 162/98 H Blood Pressure Mean 117 119 Pulse Ox 95 Oxygen Delivery Method Room Air Positive well nourished and well developed General Appearance ED: well developed and NAD HEENT Reports moist mucous membranes Neck supple and no JVD Resp normal respiratory effort and clear to auscultation bilaterally Cardio regular rate, regular rhythm and no murmurs GI normal to inspection, nondistended, normoactive bowel sounds and non-tender Palpation: soft Extremity normal to inspection General Extremety ED: Negative for edema or tenderness General Extremity: Negative for edema Neuro oriented x3, CN's II-XII intact bilaterally and no sensory deficits noted Sensorium / Orientation: alert Motor Exam: strength 5/5 throughout Psych mental status grossly normal Skin no rashes or lesions noted MDM MDM MDM Narrative Medical decision making narrative: Patient was given a dose of labetalol here. EKG was obtained. On my interpretation, it showed a normal sinus rhythm with frequent PVCs with a rate of 94. CA interval, QRS interval, and QTc intervals were all normal. [place] was normal. There are no acute ST or T wave changes. CBC was within normal limits. Comprehensive metabolic profile was within normal limits. High-sensitivity troponin was normal. PA and lateral chest x-ray was obtained. There are 2 views. On my interpretation, lung ortiz are clear. There is normal cardiac silhouette. Bony thorax is normal. There is no acute process noted. Radiologist also interpreted the x-ray and agrees. Patient is feeling better on reevaluation. Patient's blood pressure was 140/80 on reevaluation. Patient states he has appointment with his primary care physician tomorrow. Patient was instructed to follow-up with his appointment for further changes in his medication regimen. Patient understood and was agreeable with the plan. All questions were answered. Lab Data Attestation: I reviewed the patient's lab results. Labs: Laboratory Results - last 24 hr 05/31/22 05/31/22 16:25 16:25 WBC 6.4 RBC 4.60 Hgb 15.4 Hct 42.2 MCV 91.7 MCH 33.5 H MCHC 36.5 H RDW Std Deviation 38.9 RDW Coeff of Tim 11.6 Plt Count 252 MPV 9.8 Immature Gran % (Auto) 0.300 Neut % (Auto) 73.9 H Lymph % (Auto) 14.6 L [place] % (Auto) 10.1 H Eos % (Auto) 0.9 Baso % (Auto) 0.2 Absolute Neuts (auto) 4.7 Absolute Lymphs (auto) 0.94 Nucleated RBC % 0 Sodium 140 Potassium 3.8 Chloride 106 Carbon Dioxide 25.0 Anion Gap 9 BUN 15 Creatinine 0.79 Estim Creat Clear Calc 97.54 Est GFR (MDRD) Af Amer 127 Est GFR (MDRD) Non-Af 105 BUN/Creatinine Ratio 19.0 Glucose 105 Calcium 9.6 Total Bilirubin 0.80 AST 30 ALT 39 Alkaline Phosphatase 85 Troponin I High Sens 10 Total Protein 8.1 Albumin 4.2 Globulin 3.9 Albumin/Globulin Ratio 1.1 Radiography Chest X-Ray - ED: 2 View, Read by ED Physician, Read by Radiologist, Unchanged and No Acute Disease Diagnostic Testing: Clinical Impression(s) from Imaging Studies Chest X-Ray 05/31/22 17:00 IMPRESSION: Colonic ileus otherwise Normal x-ray examination of the chest. Electronically Signed: George Crystal MD at 17:13 EST Reading Location ID and State: [address] [place] [address] , Service support , EKG Initial EKG: Attestation: I personally reviewed and interpreted this EKG as follows: Interpretation: Sinus Rhythm (With frequent PVCs with a rate of 94) and No Acute Injury Pattern Prior EKG tracings: available for review Prior: Unchanged (10/02/2021) Discharge Plan Triage Chief Complaint: Hypertension ED Provider: Elvin Payan Dx/Rx/DC Orders Clinical Impression: Hypertension Instructions: ED Hypertension, Established Prescriptions: No Action hydrochlorothiazide 25 MG tablet 25 mg PO DAILY lisinopril 40 MG tablet 40 mg PO DAILY atenolol 50 MG tablet 50 mg PO DAILY cyanocobalamin (vitamin B-12) 1,000 MCG tablet 1,000 mcg PO DAILY amlodipine 10 mg tablet 5 mg PO DAILY Primary Care Provider: Danielito Malone Referrals: Danielito Malone MD [Primary Care Provider] - Keep [facility] appointment Disposition Disposition: Home, Self Care
[2022-05-31] MEDS: Labetalol (Prefilled) 20 MG/4 ML 10 MG IV (16:40)
[2022-05-31 16:55] LABS: Absolute Lymphocyte Count 0.94 X10^3/uL (0.83-4.51); Absolute Neutrophil Count 4.7 X10^3/uL (2.0-7.7); Basophil# 0.01 X10^3/uL; Basophil% 0.2 % (0-1); Eosinophil# 0.06 X10^3/uL; Eosinophils% 0.9 % (0-5); Hematocrit 42.2 % (40-54); Hemoglobin 15.4 g/dL (13.0-16.5); Lymphocyte # 0.94 X10^3/ul (0.83-4.51); Lymphocyte % 14.6 % (19-41); Mean Corp Hgb Conc 36.5 g/dL (32-36); Mean Corpuscular Hgb 33.5 pg (27.0-32.0); Mean Corpuscular Volume 91.7 fL (80-94); Mean Platelet Vol. 9.8 fl (6.2-12.0); Monocyte# 0.65 X10^3/uL; Monocyte% 10.1 % (0-10); NRBC Flagged by Analyzer 0 % (0-5); Neutrophil # 4.74 X10^3/uL (2.7-7.7); Neutrophil % 73.9 % (47-70); Platelet Count 252 K/mm3 (150-450); RBC Distribution Width CV 11.6 % (11.6-14.6); RBC Distribution Width SD 38.9 fl (35.1-43.9); White Blood Count 6.4 K/mm3 (4.4-11.0)
--- NOTE | 2022-05-31 17:00 | RAD_ITS ---
STUDY: X-RAY CHEST REASON FOR EXAM: Male, 66 years old. Palpitations TECHNIQUE: Frontal and lateral views of the chest. COMPARISON: October 02, 2021 chest x-ray FINDINGS: The lungs are clear and expanded. There is no demonstrated pleural abnormality. Normal size heart. Normal mediastinum and mickey. Normal visualized pulmonary arteries. Normal visualized aortic arch and descending thoracic aorta. Normal visualized thoracic spine. Normal visualized ribs, clavicles, and shoulders. Colonic ileus. RAD/Chest PA and Lateral IMPRESSION: Colonic ileus otherwise Normal x-ray examination of the chest. Electronically Signed: George Crystal MD at 17:13 [facility] ,
[2022-05-31 17:13] LABS: ALB/GLOB Ratio 1.1 RATIO (0.9-2.4); AST(SGOT) 30 U/L (15-37); Alanine Aminotransfer ALT/SGPT 39 U/L (16-61); Albumin, Serum 4.2 g/dL (3.2-5.0); Alkaline Phosphatase 85 U/L (45-117); Anion Gap 9 (5-15); BUN 15 mg/dL (7-18); Calcium,Total 9.6 mg/dL (8.5-10.1); Chloride 106 mmol/L (98-107); Creatinine, Serum 0.79 mg/dL (0.70-1.30); EST Glomerular Filtration Rate 105 mL/min (>60); Est Glom Filt Rate - Afr Amer 127 mL/min (>60); Estimated Creatinine Clearance 97.54 ml/min; Globulin 3.9 g/dL (2.2-4.2); Glucose 105 mg/dL (74-106); Potassium 3.8 mmol/L (3.5-5.1); Protein, Total 8.1 g/dL (6.4-8.2); Sodium Level 140 mmol/L (136-145); Troponin-I HS 10 pg/mL (3.0-78.0)
[2022-05-31 17:27] VITALS: BP 162/98; PULSE 86; RESP 15
[2022-05-31 17:45] VITALS: BP 140/80; O2SAT 97
== END 2022-05-31 17:47 | disposition home or self-care (01) ==
PROVIDERS: Emergency Provider Emergency Medicine; PCP Family Medicine; Visit Provider Emergency Medicine
DX: I10 Essential (primary) hypertension (principal)
CPT/HCPCS: 71046; 80053; 84484; 85025; 93005; 96374; 99283; A4216

== ENCOUNTER 2023-04-14 14:45 | Emergency (ER) | payer BC, SELFPAY ==
[2023-04-14 14:46] VITALS: BP 176/86; PULSE 88; RESP 14; TEMP 36.4; O2SAT 98; BMI 23.0
--- NOTE | 2023-04-14 15:03 | EKG12_ITS ---
Test Reason : CP Blood Pressure : / mmHG Vent. Rate : 079 BPM Atrial Rate : 079 BPM P-R Int : 172 ms QRS Dur : 094 ms QT Int : 360 ms P-R-T Axes : 060 -14 032 degrees QTc Int : 412 ms Sinus rhythm with occasional Premature ventricular complexes Otherwise normal ECG Confirmed by AYE BULLOCK, FORD ([id number]), editor dictionary TOO MUKHERJEE ([id number]) on 04/25/2023 9:55:49 AM Referred By: WENDY/PRESLEY Confirmed By:FORD GRIFFITHS MD
[2023-04-14 15:13] LABS: Absolute Lymphocyte Count 1.46 X10^3/uL (0.83-4.51); Absolute Neutrophil Count 3.6 X10^3/uL (2.0-7.7); Basophil# 0.02 X10^3/uL; Basophil% 0.3 % (0-1); Eosinophil# 0.07 X10^3/uL; Eosinophils% 1.2 % (0-5); Hematocrit 43.7 % (40-54); Hemoglobin 15.1 g/dL (13.0-16.5); Lymphocyte # 1.46 X10^3/ul (0.83-4.51); Lymphocyte % 24.7 % (19-41); Mean Corp Hgb Conc 34.6 g/dL (32-36); Mean Corpuscular Hgb 32.3 pg (27.0-32.0); Mean Corpuscular Volume 93.6 fL (80-94); Mean Platelet Vol. 9.7 fl (6.2-12.0); Monocyte# 0.76 X10^3/uL; Monocyte% 12.9 % (0-10); NRBC Flagged by Analyzer 0 % (0-5); Neutrophil # 3.58 X10^3/uL (2.7-7.7); Neutrophil % 60.6 % (47-70); Platelet Count 274 K/mm3 (150-450); RBC Distribution Width CV 11.8 % (11.6-14.6); RBC Distribution Width SD 39.8 fl (35.1-43.9); Red Blood Count 4.67 M/mm3 (4.6-6.2); White Blood Count 5.9 K/mm3 (4.4-11.0)
--- NOTE | 2023-04-14 15:15 | RAD_ITS ---
STUDY: X-RAY CHEST REASON FOR EXAM: Male, 67 years old. chest pain TECHNIQUE: Single AP portable view of the chest. COMPARISON: The summer FINDINGS: The lungs are clear and expanded. There is no demonstrated pleural abnormality. Normal size heart. Normal mediastinum and mickey. Normal visualized pulmonary arteries. There is atherosclerotic calcification of the aortic arch with tortuosity. There are diffuse degenerative changes of the visualized thoracic spine. Normal visualized ribs, clavicles, and shoulders. There is no demonstrated abnormality of the visualized soft tissue structures of the upper abdomen. RAD/Chest 1 View (Portable) IMPRESSION: Degenerative changes, as described above. No demonstrated acute cardiopulmonary process. Electronically Signed: Joe Lugo MD at 15:36 EST ,
--- NOTE | 2023-04-14 15:20 | ED.VIS.CHEST ---
HPI History of Present Illness Chief Complaint: Chest Pain Informant: patient Onset/Context/Timing Onset: Yesterday Narrative Narrative: Patient presents secondary to chest pressure that started yesterday. Patient states 10 days ago he had an episode of palpitations where he felt like his heart was racing for about an hour. After sitting and doing some deep breathing his heart rate gradually slowed. Yesterday he noted some chest tightness in both the right and left upper chest. Symptoms have persisted today. He does not feel short of breath. No recent medication changes. He does follow with a voicer secondary to hypertension. [facility] Medical History Hernia HLD (hyperlipidemia) HTN (hypertension) Home Medications cyanocobalamin (vitamin B-12) 1,000 mcg tablet 1,000 mcg PO DAILY SUPPLEMENT 11/12/19 [History Last Taken 11/12/19] lisinopril 40 mg tablet 40 mg PO DAILY BP 11/12/19 [History Last Taken 11/12/19] amlodipine 10 mg tablet 10 mg PO DAILY 07/13/21 [History Last Taken Unknown] carvedilol 6.25 mg tablet 6.25 mg PO Q12H 04/14/23 [History Last Taken Unknown] rosuvastatin 20 mg tablet 20 mg PO QHS 04/14/23 [History Last Taken Unknown] Allergy/AdvReac Type Severity Reaction Status Date / Time No Known Allergies Allergy Verified 04/14/23 14:45 Surgical History H/O repair of rotator cuff History of herniorrhaphy Social History Smoking Status: Never smoker ROS ROS ED Constitutional Constitutional ED: Denies chills or fever(s) Eyes Eyes: Denies discharge from eye(s) ENT ENT ED: Denies discharge from eye(s), rhinorrhea or sore throat Cardiovascular Cardiovascular: Reports chest pain, palpitations and racing heartbeat Respiratory/Chest Respiratory/Chest: Denies cough or dyspnea Gastrointestinal Gastrointestinal: Denies abdominal pain, nausea or vomiting Musculoskeletal Musculoskeletal: Denies back pain or extremity pain Integumentary Denies Abrasions or rash Neurologic Neurologic: Denies headache(s) or weakness Allergic/Immunologic Allergic/Immunologic ED: Denies lip swelling or urticaria EXAM Physical Exam Const Vital Signs: 04/14/23 14:46 04/14/23 15:06 04/14/23 15:06 Temperature 97.6 F L Temperature Source Temporal Pulse Rate 88 Respiratory Rate 14 Respiratory Pattern Normal Blood Pressure 176/86 H Blood Pressure Mean 116 Pulse Ox 98 Oxygen Delivery Method Room Air Room Air 04/14/23 15:27 04/14/23 15:19 04/14/23 16:00 Temperature Temperature Source Pulse Rate 81 Respiratory Rate 16 Respiratory Pattern Normal Blood Pressure 149/96 H Blood Pressure Mean 113 Pulse Ox 99 Oxygen Delivery Method Room Air Room Air 04/14/23 16:44 04/14/23 17:00 Temperature Temperature Source Pulse Rate 59 L 83 Respiratory Rate 12 16 Respiratory Pattern Blood Pressure 182/97 H 157/94 H Blood Pressure Mean 125 115 Pulse Ox 99 99 Oxygen Delivery Method Room Air Room Air Positive well nourished and well developed General Appearance ED: well developed HEENT Reports moist mucous membranes Eyes EOMs intact bilaterally Chest Wall inspection of chest normal and palpation of chest normal Resp normal respiratory effort and clear to auscultation bilaterally Cardio regular rate and regular rhythm GI soft to palpation and non-tender Extremity normal to inspection Neuro oriented x3 Sensorium / Orientation: alert Skin no rashes or lesions noted Heart Score History: Slightly/Non-Suspicious ECG: Nonspecific Repolarization Age: >/= 65 years Risk Factors: 1 or 2 Risk Factors Troponin: </= Normal Limit Score: 4 MDM MDM MDM Narrative Medical decision making narrative: 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 Patient given aspirin. Labwork obtained to evaluate for leukocytosis, anemia, and electrolyte derangement. EKG obtained to evaluate for cardiac arrhythmia/ischemia. Chest x-ray obtained to evaluate for acute lung pathology, cardiac size, or mediastinal abnormality. History & Record Review Discussion w/independent historian: Patient Additional record(s) reviewed:: Prior ED visit and Prior labs Lab Data Attestation: I reviewed the patient's lab results. Labs: Laboratory Results - last 24 hr 04/14/23 14:55 WBC 5.9 RBC 4.67 Hgb 15.1 Hct 43.7 MCV 93.6 MCH 32.3 H MCHC 34.6 RDW Std Deviation 39.8 RDW Coeff of Tim 11.8 Plt Count 274 MPV 9.7 Immature Gran % (Auto) 0.300 Neut % (Auto) 60.6 Lymph % (Auto) 24.7 [place] % (Auto) 12.9 H Eos % (Auto) 1.2 Baso % (Auto) 0.3 Absolute Neuts (auto) 3.6 Absolute Lymphs (auto) 1.46 Nucleated RBC % 0 Sodium 140 Potassium 4.2 Chloride 111 H Carbon Dioxide 26.0 Anion Gap 3 L BUN 19 H Creatinine 0.88 Estim Creat Clear Calc 86.12 Est GFR (MDRD) Af Amer 112 Est GFR (MDRD) Non-Af 93 BUN/Creatinine Ratio 21.7 H Glucose 97 Calcium 9.4 Troponin I High Sens 8 Radiography Chest X-Ray - ED: 1 View, Read by ED Physician and Chronic Changes Diagnostic Testing: Clinical Impression(s) from Imaging Studies Chest X-Ray 04/14/23 15:15 IMPRESSION: Degenerative changes, as described above. No demonstrated acute cardiopulmonary process. Electronically Signed: Joe Lugo MD at 15:36 EST Reading Location ID and State: [facility] / [place] , Service support , EKG Initial EKG: Attestation: I personally reviewed and interpreted this EKG as follows: Interpretation: Sinus Rhythm (Sinus at 79 with PVC. No acute ischemia.) Treatment and Re-Evaluation :: CBC was in a white count 5.9 with a hemoglobin of 15.1. Chemistry studies unremarkable. Troponin is normal at 8. Portable chest x-ray per my interpretation reveals chronic changes with no focal infiltrate. Radiology interpretation reviewed and agrees. EKG is sinus with PVC. On repeat evaluation patient resting comfortably. Test results discussed with him. He has had greater than 12 hours of pain with a normal troponin. His pain is atypical for cardiac. I do not feel he needs a repeat troponin and can be safely discharged home. He will follow-up with his voicer. Discharge Plan Triage Chief Complaint: Chest Pain ED Provider: Mariana Gore Dx/Rx/DC Orders Clinical Impression: Chest pain Instructions: ED Chest Pain, Uncertain Cause Prescriptions: No Action lisinopril 40 MG tablet 40 mg PO DAILY cyanocobalamin (vitamin B-12) 1,000 MCG tablet 1,000 mcg PO DAILY amlodipine 10 mg tablet 10 mg PO DAILY carvedilol 6.25 mg tablet 6.25 mg PO Q12H Patient Comments: Take 1 tablet by mouth twice daily. rosuvastatin 20 mg tablet 20 mg PO QHS Patient Comments: Take 1 tablet by mouth daily at bedtime. Primary Care Provider: Danielito Malone Referrals: Danielito Malone MD [Primary Care Provider] - 1 Week Disposition Disposition: Home, Self Care
[2023-04-14] MEDS: Aspirin 81 MG TAB.CHEW 324 MG PO (15:26)
[2023-04-14 15:33] LABS: Anion Gap 3 (5-15); BUN 19 mg/dL (7-18); BUN/Creat Ratio 21.7 RATIO (10-20); Calcium,Total 9.4 mg/dL (8.5-10.1); Chloride 111 mmol/L (98-107); Creatinine, Serum 0.88 mg/dL (0.70-1.30); EST Glomerular Filtration Rate 93 mL/min (>60); Est Glom Filt Rate - Afr Amer 112 mL/min (>60); Estimated Creatinine Clearance 86.12 ml/min; Glucose 97 mg/dL (74-106); Potassium 4.2 mmol/L (3.5-5.1); Sodium Level 140 mmol/L (136-145); Troponin-I HS (w/2H Reflex) 8 pg/mL (3.0-78.0)
[2023-04-14 16:00] VITALS: BP 149/96; PULSE 81; RESP 16; O2SAT 99
[2023-04-14] MEDS: 0.9% Normal Saline (1000mL) 1,000 ML 150 ML IV (16:26)
[2023-04-14 16:44] VITALS: BP 182/97; PULSE 59; RESP 12; O2SAT 99
[2023-04-14 17:00] VITALS: BP 157/94; PULSE 83; RESP 16; O2SAT 99
[2023-04-14 17:10] LABS: Reflex Troponin-HS? (from REC) Y
[2023-04-14 18:03] LABS: Troponin-I HS 8 pg/mL (3.0-78.0)
== END 2023-04-14 17:26 | disposition home or self-care (01) ==
PROVIDERS: Emergency Provider Emergency Medicine; PCP Family Medicine; Visit Provider Emergency Medicine
DX: R07.9 Chest pain, unspecified (principal); I10 Essential (primary) hypertension; E78.5 Hyperlipidemia, unspecified; Z79.899 Other long term (current) drug therapy
CPT/HCPCS: 71045; 80048; 84484; 85025; 93005; 96360; 99285